=== PATIENT | female | born 1950 | race Caucasian/White ===

== ENCOUNTER → 2019-06-21 | Outpatient (CLI) | payer MEDICARE, OTHER ==
[2019-06-21 11:42] LABS: HEMOGLOBIN 11.6 g/dl (12.5-16.0); MEAN CELL VOLUME 90 fl (80.0-100.0); MEAN CORPUSCULAR HEMOGLOBIN 31 pg (27.0-31.0); MEAN CORPUSCULAR HGB CONC 35 g/dl (33.0-37.0); MEAN PLATELET VOLUME 9.1 fl (7.4-10.4); PLATELET COUNT 273 K/mm3 (130-400); RED BLOOD COUNT 3.73 M/mm3 (4.10-5.30); REDCELL DISTRIBUTION WIDTH-CV 12.7 % (11.5-14.5)
[2019-06-21 11:43] LABS: HEMATOCRIT 33.4 % (37.0-47.0)
[2019-06-21 12:06] LABS: ERYTHROCYTE SEDIMENTATION RATE 35 mm/hr (0-30)
[2019-06-21 16:28] LABS: SYNOVIAL FLUID COLOR YELLOW
[2019-06-21 16:29] LABS: SYNOVIAL FLUID APPEARANCE HAZY
[2019-06-21 17:35] LABS: SYNOVIAL FL. MONONUCLEAR 9.2 % (0-75); SYNOVIAL FLUID RBC 11000 /mm3 (0-0); SYNOVIAL FLUID WBC 51955 /mm3 (200-600)
== END ==
LOC: COL.LAB 11:14
PROVIDERS: Orthopaedic Surgery
DX: M25.562 Pain in left knee (principal)

== ENCOUNTER 2019-06-23 10:38 | Day surgery (SDC) | payer MEDICARE, OTHER ==
[~2019-06-23] VITALS: Ht 172.7 cm; Wt 84.1 kg
[2019-06-23] VITALS (7 sets, daily range): BP systolic 147–178; BP diastolic 54–83; PULSE 80–116; TEMP 98–98.6
--- NOTE | 2019-06-23 11:16 | NUR ---
TO RM 1045- CALL LIGHT IN REACH MOY QUIROZ WITH IV SERVICES PLACING A PICC LINE
[2019-06-23] MEDS ORDERED: COREG 6.256.25 MG/TA PO (11:20)
[2019-06-23] MEDS ORDERED: BENICAR40 MG PO (11:20)
[2019-06-23] MEDS ORDERED: SYNTHROID0.088 MG/T PO (11:21)
[2019-06-23] MEDS ORDERED: ALEVE 220MG220 MG PO (11:21)
[2019-06-23] MEDS ORDERED: OSTEO-BI-FLEX 21 TAB PO (11:21)
[2019-06-23] MEDS ORDERED: TYLENOL W/COD1 UDTAB PO (11:22)
[2019-06-23] MEDS ORDERED: MOBIC15 MG PO (11:23)
[2019-06-23] MEDS ORDERED: TYLENOL 500MG500 MG PO (11:24)
--- NOTE | 2019-06-23 11:58 | NUR ---
PICC LINE COMPLETED AND READY TO USE DR CONTRERAS TALKED TO PATIENT AND MARKED OPERATIVE SITE INFECTION DISEASE CONSULT WITH DR MOI MELENDEZ - LEFT MESSAGE ON HIS CELL PHONE AND INSTRUCTED HIM TO CALL DR BEN HENRIQUEZ # [phone]
--- NOTE | 2019-06-23 12:30 | NUR ---
VANCOMYCIN 1GM STARTED PER PICC LINE L UPPER ARM.
--- NOTE | 2019-06-23 15:05 | NUR ---
Patient arrives to [facility] via cart, accompanied by MEDICAL ADMINISTRATIVE Jigna. She is sitting up in bed, alert and oriented. Monitoring is applied -VSS and WNL on room air. She denies pain, nausea, or need. She has a clean, dry, intact OLGA bandage on her left knee. Her PICC line is saline locked. She requests and receives ice chips and crackers to eat. Tolerates PO well. Will continue to monitor.
--- NOTE | 2019-06-23 15:20 | NUR ---
VSS on room air. Tolerating PO well. Contacted GALE Wagner at [facility] office regarding whether the patient needed her daptomycin infusions initiated today at the hospital and she states no she will start them tomorrow in [place]. dietary services director is working on arranging outpatient infusions for her in [place].
[2019-06-23] MEDS ORDERED: ASPI325T6 PO (15:39)
--- NOTE | 2019-06-23 17:10 | NUR ---
MARISELA responded to consult. The patient is going to need four weeks of IV antibiotics. 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 The patient was interested and agreeable with getting the IV antibiotics set up there. MARISELA collaborated with the patient's RN and received the antibiotic order and instructions from the attending physician. MARISELA contacted Piedad at [facility] and faxed her the patient's information. The patient's RN faxed the antibiotic order and instructions to [facility]. Piedad reports that they are good to accept the patient for the IV antibiotics and to have the patient contact them for a time to come in. They are familiar with the patient. MARISELA updated the patient. The patient verbalized understanding and is agreeable to this. She states that she will be contacting them to come in tomorrow. No additional needs at this time.
--- NOTE | 2019-06-23 17:30 | NUR ---
Patient voids. She dresses with the help of staff. Discharge instructions are discussed, she denies any questions and verbalizes understanding. She is escorted to the exit via wheelchair. She is discharged to home with ride in private vehicle at 1730.
--- NOTE | 2019-06-23 17:32 | NUR ---
Patient has some soreness at her operative site. Will return with PO pain medications.
== END 2019-06-23 17:30 | disposition home or self-care (01) ==
LOC: SDCO 10:38
DX: M00.062 Staphylococcal arthritis, left knee (principal); B95.61 Methicillin susceptible Staphylococcus aureus infection as the cause of diseases classified elsewhere; E03.9 Hypothyroidism, unspecified; Z96.651 Presence of right artificial knee joint; Z88.1 Allergy status to other antibiotic agents; Z79.899 Other long term (current) drug therapy; Z79.82 Long term (current) use of aspirin
CPT/HCPCS: C1751; J0690; J1100; J2405; J2704; J3010; J3370; J7050; J7120

== ENCOUNTER → 2019-07-05 | Outpatient (CLI) | payer MEDICARE, OTHER ==
[~2019-07-05] MED LIST: ALEVE 220MG220 MG PO; ASPI325T6 PO; BENICAR40 MG PO; COREG 6.256.25 MG/TA PO; MOBIC15 MG PO; OSTEO-BI-FLEX 21 TAB PO; SYNTHROID0.088 MG/T PO; TYLENOL 500MG500 MG PO; TYLENOL W/COD1 UDTAB PO
[2019-07-05 16:21] LABS: MEAN CELL VOLUME 92 fl (80.0-100.0); MEAN CORPUSCULAR HGB CONC 33 g/dl (33.0-37.0); MEAN PLATELET VOLUME 9.2 fl (7.4-10.4); PLATELET COUNT 496 K/mm3 (130-400); RED BLOOD COUNT 3.26 M/mm3 (4.10-5.30); REDCELL DISTRIBUTION WIDTH-CV 12.5 % (11.5-14.5)
[2019-07-05 16:25] LABS: HEMATOCRIT 30.1 % (37.0-47.0); HEMOGLOBIN 9.9 g/dl (12.5-16.0); MEAN CORPUSCULAR HEMOGLOBIN 30 pg (27.0-31.0)
[2019-07-05 16:47] LABS: ERYTHROCYTE SEDIMENTATION RATE > 140 mm/hr (0-30)
== END ==
LOC: COL.LAB 15:44
PROVIDERS: Orthopaedic Surgery
DX: M25.462 Effusion, left knee (principal)

== ENCOUNTER → 2019-07-06 | Outpatient (CLI) | payer MEDICARE, OTHER | LOC: ZCOL.LAB 11:43 | DX: M25.462 Effusion, left knee (principal) ==